=== PATIENT | male | born 1980 | race Asian ===

== ENCOUNTER 2018-08-23 14:17 | Outpatient (CLI) | payer OTHER ==
[2018-08-23 14:47] LABS: BUN - BLOOD UREA NITROGEN 20 mg/dL (6-20); CALCIUM 9.5 mg/dL (8.5-10.3); CARBON DIOXIDE - CO2 29 mmol/L (21-32); CHLORIDE 99 mmol/L (101-111); CHOL/HDL RATIO 4.1 (<5.0); CHOLESTEROL 156 mg/dL; CREATININE 1.2 mg/dL (0.6-1.2); GFR - MDRD 67 (>89); GLUCOSE 92 mg/dL (70-100); HDL CHOLESTEROL 38 mg/dL; LDL CHOLESTEROL,CALCULATED 93 mg/dL; LDL/HDL RATIO 2.4 (<3.6); SODIUM 136 mmol/L (135-145); VLDL CHOLESTEROL 25 mg/dL
== END 2018-08-23 14:18 | disposition home or self-care (01) ==
LOC: LAB 14:17
PROVIDERS: ATTEND Internal Medicine
DX: Z00.00 Encounter for general adult medical examination without abnormal findings (principal)
CPT/HCPCS: 36415; 80048; 80061; 83721

== ENCOUNTER 2022-03-24 10:07 | Outpatient (CLI) | payer BC ==
[2022-03-24 14:42] LABS: BASOPHILS # (AUTO) 0.1 10^3/uL (0.0-0.1); BASOPHILS % (AUTO) 0.6 %; EOSINOPHILS # (AUTO) 0.2 10^3/uL (0.0-0.7); EOSINOPHILS % (AUTO) 2.2 %; HGB - HEMOGLOBIN 14.8 g/dL (14.0-18.0); LYMPHOCYTES # (AUTO) 2.2 10^3/uL (1.5-3.5); LYMPHOCYTES % (AUTO) 27.6 %; MEAN CORPUSCULAR HEMOGLOBIN 27.8 pg (27.0-31.0); MEAN CORPUSCULAR HGB CONC 32.2 g/dL (32.0-36.0); MEAN CORPUSCULAR VOLUME 86.5 fL (80.0-94.0); MEAN PLATELET VOLUME 10.1 fL (7.4-11.4); MONOCYTES # (AUTO) 0.8 10^3/uL (0.0-1.0); MONOCYTES % (AUTO) 9.8 %; NEUTROPHILS # (AUTO) 4.8 10^3/uL (1.5-6.6); NEUTROPHILS % (AUTO) 59.3 %; PLT - PLATELET COUNT 272 10^3/uL (130-450); RED BLOOD COUNT 5.32 10^6/uL (4.70-6.10)
[2022-03-24 15:00] LABS: CHOL/HDL RATIO 6.8 (<5.0); CHOLESTEROL 196 mg/dL; HDL CHOLESTEROL 29 mg/dL; LDL CHOLESTEROL,CALCULATED 130 mg/dL; LDL/HDL RATIO 4.5 (<3.6); TRIGLYCERIDES 183 mg/dL; VLDL CHOLESTEROL 37 mg/dL
[2022-03-24 15:10] LABS: THYROID STIMULATING HORMONE 3.63 uIU/mL (0.34-5.60)
[2022-03-24 20:55] LABS: ESTIMATED AVERAGE GLUCOSE 111 mg/dL (70-100); HEMOGLOBIN A1c% 5.5 % (4.27-6.07)
[2022-03-25 03:08] LABS: HCV AB <0.1 s/co ratio (0.0-0.9)
== END 2022-03-24 10:08 | disposition home or self-care (01) ==
LOC: LAB.S 10:07
PROVIDERS: ATTEND Internal Medicine
DX: K22.70 Barrett's esophagus without dysplasia (principal); K21.9 Gastro-esophageal reflux disease without esophagitis; E66.3 Overweight; Z13.220 Encounter for screening for lipoid disorders; Z11.59 Encounter for screening for other viral diseases
CPT/HCPCS: 36415; 80061; 83036; 83721; 84443; 85025; 86803

== ENCOUNTER 2023-02-23 10:55 | Day surgery (SDC) | payer BC ==
[2023-02-23] MEDS ORDERED: ceFAZolin 2 GM VIAL ONE (11:10)
[2023-02-23] MEDS ORDERED: LACTATED RINGERS 1,000 ML IV ONE ×2 (11:12→14:21)
[2023-02-23] MEDS ORDERED: BUPIVACAINE 0.25% PF 30 ML VIAL ONE ×2 (11:25→11:26)
--- NOTE | 2023-02-23 11:25 | ANESTHESIA ---
Pre-Anesthesia VS, & Labs - Diagnosis ventral hernia - Procedure open ventral hernia repair Height: 6 ft 2.5 in Weight (kg): 105.69 kg Body Mass Index: 29.5 BMI Classification: Overweight - NPO >8 hours Last Fluid Intake: coffee @0600 - Lab Results Lab results reviewed: Yes Home Medications and Allergies Home Medications: Ambulatory Orders Omeprazole 20 mg PO BID 02/20/23 buPROPion HCL [Wellbutrin Xl] 300 mg PO DAILY 02/20/23 Omeprazole 20 mg PO BID 02/20/23 buPROPion HCL [Wellbutrin Xl] 300 mg PO DAILY 02/20/23 Allergies/Adverse Reactions: Allergies Allergy/AdvReac Type Severity Reaction Status Date / Time No Known Drug Allergies Allergy Verified 02/20/23 14:51 Anes History & Medical History - Anesthetic History Anesthesia Complications: reports: No previous complications Family history of Anesthesia Complications: Denies Family history of Malignant Hyperthermia: Denies - Medical History Cardiovascular: reports: Hypertension Pulmonary: reports: None Gastrointestinal: reports: GERD Urinary: reports: None Musculoskeletal: reports: Other Endocrine/Autoimmune: reports: None Skin: reports: Psoriasis Smoking Status: Current some day smoker Psychosocial: reports: Cannabis History of Cancer?: No - Surgical History General: reports: Colonoscopy, EGD Eyes Ears Nose Throat (EENT): reports: Tonsil/Adenoidectomy Exam General: Alert, Oriented x3, Cooperative Dental: WNL Mouth Openin Fingerbreadth Neck Mobility: Normal Mallampati classification: II Thyromental Distance: 4-6 cm Respiratory: Lungs clear, Normal breath sounds, No respiratory distress Cardiovascular: Regular rate Neurological: Normal speech Mental/Cognitive Status: Alert/Oriented X3, Normal for patient Cognitive Status: Within normal limits Plan Anesthesia Type: General Consent for Procedure(s) Verified and Reviewed: Yes Code Status: Attempt Resuscitation ASA classification: 2-Mild systemic disease Is this case an emergency?: No
[2023-02-23] MEDS ORDERED: ePHEDrine 50 MG/ML VIAL IVP PRN (11:58)
[2023-02-23] MEDS ORDERED: NALOXONE 0.4 MG/ML VIAL IVP PRN (11:58)
[2023-02-23] MEDS ORDERED: ONDANSETRON 4 MG/2 ML VIAL IVP PRN ×2 (11:58→14:22)
[2023-02-23] MEDS ORDERED: HYDROmorphone 0.5 MG/0.5 ML SYRINGE IVP PRN ×2 (11:58→14:22)
[2023-02-23] MEDS ORDERED: fentaNYL 100 MCG/2 ML VIAL IVP PRN (11:58)
[2023-02-23] MEDS ORDERED: ATROPINE ABBOJECT 1 MG/10 ML SYRINGE IVP PRN (11:58)
[2023-02-23] MEDS ORDERED: MORPHINE 2 MG/ML CARPUJECT IVP PRN (11:58)
[2023-02-23] MEDS ORDERED: LACTATED RINGERS 1,000 ML IV SCH (12:00)
[2023-02-23] MEDS ORDERED: fentaNYL 100 MCG/2 ML VIAL ONE (12:02)
[2023-02-23] MEDS ORDERED: PROPOFOL 200 MG/20 ML VIAL IVP ONE ×2 (12:02→14:12)
[2023-02-23] MEDS ORDERED: LIDOCAINE-PF 2% 10 ML AMP SUBQ ONE ×2 (12:02→13:57)
[2023-02-23] MEDS ORDERED: MIDAZOLAM 2 MG/2 ML VIAL ONE (12:02)
[2023-02-23] MEDS ORDERED: ROCURONIUM 50 MG/5 ML VIAL ONE (12:03)
--- NOTE | 2023-02-23 12:32 | HISTORY & PHYSICAL EXAMINATION ---
Chief Complaint - Chief Complaint Chief Complaint: abdominal wall hernia History of Present Illness - History Obtained From Records Reviewed: yes History obtained from: pt Exam Limitations: none - History of Present Illness HPI Comment/Other: ventral hernia. getting bigger and more painful History - Past Medical History Cardiovascular: reports: Hypertension Respiratory: reports: None Endocrine/Autoimmune: reports: None GI: reports: GERD : reports: None HEENT: reports: Chronic sinusitis Psych: reports: Depression, Anxiety, Panic attacks, Post traumatic stress disorder Musculoskeletal: reports: Other Derm: reports: Psoriasis MRSA Hx?: No - Past Surgical History General: reports: Colonoscopy, EGD HEENT: reports: Tonsil/Adenoidectomy - POLST Patient has POLST: No Meds/Allgy - Home Medications Home Medications: Ambulatory Orders Medication Instructions Recorded Confirmed Omeprazole 20 mg PO BID 02/20/23 02/20/23 buPROPion HCL [Wellbutrin Xl] 300 mg PO DAILY 02/20/23 02/20/23 - Allergies Allergies/Adverse Reactions: Allergies Allergy/AdvReac Type Severity Reaction Status Date / Time No Known Drug Allergies Allergy Verified 02/20/23 14:51 Review of Systems - Other Findings Other Findings: 10 pt ros as above otherwise unremarkable Exam - Vital Signs Vital Signs: Vital Signs x48h Temp Pulse Resp BP Pulse Ox 02/23/23 11:32 36.2 C L 70 16 148/105 H 96 - Physical Exam General Appearance: positive: No acute distress, Alert Eyes Bilateral: positive: PERRL, EOMI ENT: positive: No signs of dehydration Neck: positive: No JVD, Trachea midline Respiratory: positive: No respiratory distress, Breath sounds nml Cardiovascular: positive: Regular rate & rhythm Abdomen: positive: Non-tender, No distention Neurologic/Psychiatric: positive: Oriented x3 Conclusion/Plan - Problem List (1) Ventral hernia Conclusion/Plan: plan open repair with mesh. parq held and consent obtained - Lab Results Lab results reviewed: Yes
[2023-02-23] MEDS ORDERED: DEXAMETHASONE 4 MG/ML VIAL ONE (12:51)
[2023-02-23] MEDS ORDERED: BUPIVACAINE 0.25% PF 30 ML VIAL SUBQ ONE (13:07)
[2023-02-23] MEDS ORDERED: SUGAMMADEX 200 MG/2 ML VIAL IVP ONE (13:57)
[2023-02-23] MEDS ORDERED: HYDROcod/ACETAM 5/325 MG TABLET PO PRN (14:22)
--- NOTE | 2023-02-23 14:38 | OPERATIVE REPORT ---
Operative Report - General Procedure Date: 02/23/23 Planned Procedure: open ventral hernia repair with mesh Pre-Op Diagnosis: ventral hernia Procedure Performed: open repair incarcerated ventral hernia with mesh Post Op Diagnosis: incarcerated ventral hernia - Procedure Note Primary Surgeon: wilbert donato Anesthesia Technique: General ET tube, Local Pathology: none Estimated Blood Loss (mL): 2 Drain/Tube Type: Other (none) Indications: painful hernia bulge Findings: 1 cm umbilical hernia. 5 x 2 cm ventral hernia. 4 x 4 cm incarcerated fat 2 x 4 in polypropylene mesh preperitoneal - Other Other Information/Narrative: The patient was properly identified brought to the operating room and placed in supine position. General endotracheal anesthesia was induced. Sequential compression devices were placed. He was prepped and draped in a sterile fashion and given preoperative antibiotics. He had a palpable hernia approximately 4 cm bulge 4 cm cephalad of the umbilicus. A vertical incision was made directly over the marked site of the hernia. The incision was extended left lateral of the umbilicus. Dissection proceeded with cutting current down to the hernia sac. The hernia sac containing adipose tissue was mobilized away from the surrounding subcutaneous tissue down to fascia. Umbilical skin was excised away from the fascia. A 1 cm umbilical hernia was present. Ventral hernia measures approximately 5 x 2 cm. There was a 1 cm bridge between the 2 hernias. The hernia sac was carefully released with cutting current cautery. Small bridge between the 2 hernias was released. The preperitoneal space was carefully developed and incarcerated adipose tissue reduced. The peritoneum remained intact. 2 inch wide by 4 inch tall polypropylene mesh was placed preperitoneal and secured with a total of nearly 20 0 Ethibond sutures. Sutures were placed 2 cm back from the fascial edge circumferentially. Mesh lay in good position. Fascia was then closed over the mesh with additional three-point interrupted 0 Ethibond sutures. Subcutaneous tissue was closed in 2 layers with interrupted 2-0 Vicryl suture. Umbilical skin had been tacked back down to fascia with an interrupted 2-0 Vicryl. Buried interrupted subdermal 3-0 Vicryl sutures were then placed. Skin was closed with a running 4-0 Monocryl subcuticular suture. Dressing was applied. He tolerated the procedure well was awakened and brought to recovery in good condition.
[2023-02-23] MEDS ORDERED: PROMETHAZINE INJ 12.5 MG in SODIUM CHLORIDE 0.9% 50 ML IV ONE (15:15)
[2023-02-23] MEDS ORDERED: SCOPOLAMINE PATCH TOP ONE (15:34)
[2023-02-23] MEDS ORDERED: SCOPOLAMINE PATCH TOP SCH (16:00)
--- NOTE | 2023-02-23 16:16 | ANESTHESIA POST OP EVALUATION ---
Anesthesia Post Eval - Post Anesthesia Eval Vitals: Last Vital Signs Temp 36.0 C L 02/23/23 16:07 Pulse 79 02/23/23 16:07 Resp 16 02/23/23 16:07 BP 146/98 H 02/23/23 16:07 Pulse Ox 98 02/23/23 16:07 O2 Flow Rate CV Function Including HR & BP: Stable Pain Control: Satisfactory Nausea & Vomiting: Negative Mental Status: Baseline Respiratory Status: Airway Patent Hydration Status: Satisfactory Anesthesia Complications: None
[2023-02-23 16:30] VITALS: BP 136/98; O2SAT 100
[2023-02-23] MEDS ORDERED: HYDROcod/ACETAM 5/325 MG TABLET ONE (16:40)
== END 2023-02-23 10:56 | disposition home or self-care (01) ==
LOC: SDS 10:55
PROVIDERS: ATTEND Surgery
DX: K43.6 Other and unspecified ventral hernia with obstruction, without gangrene (principal); K42.9 Umbilical hernia without obstruction or gangrene; I10 Essential (primary) hypertension; F17.200 Nicotine dependence, unspecified, uncomplicated
CPT/HCPCS: 49594; A9270; C1781; J1170; J3490; J7040; J7120

== ENCOUNTER 2023-04-12 10:37 | Outpatient (CLI) | payer BC ==
--- NOTE | 2023-04-12 13:56 | XRAY Report ---
PROCEDURE: Chest 2 View X-Ray INDICATIONS: HYPERTENSION,ADMORNAL CHEST RADIOGRAPH TECHNIQUE: 2 views of the chest were acquired. COMPARISON: None. FINDINGS: Surgical changes and devices: None. Lungs and pleura: No pleural effusions or pneumothorax. Lungs are clear. Mediastinum: Mediastinal contours appear normal. Heart size is normal. Bones and chest wall: No suspicious bony lesions. Overlying soft tissues appear unremarkable. IMPRESSION: No acute cardiopulmonary process. Reviewed by: Luisana Kline MD on 04/12/2023 1:17 PM [facility] Approved by: Luisana Kline MD on 04/12/2023 1:17 PM [facility] Station ID: [id number]
[2023-04-12 14:38] LABS: BASOPHILS # (AUTO) 0.1 10^3/uL (0.0-0.1); BASOPHILS % (AUTO) 0.7 %; EOSINOPHILS # (AUTO) 0.3 10^3/uL (0.0-0.7); EOSINOPHILS % (AUTO) 2.6 %; HCT - HEMATOCRIT 48.4 % (42.0-52.0); HGB - HEMOGLOBIN 15.3 g/dL (14.0-18.0); LYMPHOCYTES # (AUTO) 3.1 10^3/uL (1.5-3.5); LYMPHOCYTES % (AUTO) 31.8 %; MEAN CORPUSCULAR HGB CONC 31.6 g/dL (32.0-36.0); MEAN CORPUSCULAR VOLUME 88.5 fL (80.0-94.0); MEAN PLATELET VOLUME 10.4 fL (7.4-11.4); MONOCYTES # (AUTO) 0.9 10^3/uL (0.0-1.0); MONOCYTES % (AUTO) 9.5 %; NEUTROPHILS # (AUTO) 5.4 10^3/uL (1.5-6.6); NEUTROPHILS % (AUTO) 55.1 %; PLT - PLATELET COUNT 276 10^3/uL (130-450); RED BLOOD COUNT 5.47 10^6/uL (4.70-6.10); RED CELL DISTRIBUTION WIDTH 13.9 % (12.0-15.0); WHITE BLOOD COUNT 9.7 x10^3/uL (4.8-10.8)
[2023-04-12 15:17] LABS: ALBUMIN 4.3 g/dL (3.2-5.5); ALBUMIN/GLOBULIN RATIO 1.6 (1.0-2.2); BILIRUBIN,TOTAL 0.5 mg/dL (0.2-1.0); CALCIUM 9.8 mg/dL (8.5-10.3); CREATININE 1.3 mg/dL (0.6-1.3)
== END 2023-04-12 10:38 | disposition home or self-care (01) ==
LOC: DI.S 10:37
PROVIDERS: ATTEND Emergency Medicine
DX: I10 Essential (primary) hypertension (principal)
CPT/HCPCS: 36415; 80053; 85025

== ENCOUNTER 2023-07-07 10:37 | Outpatient (CLI) | payer BC ==
[2023-07-07 14:37] LABS: BASOPHILS # (AUTO) 0.1 10^3/uL (0.0-0.1); BASOPHILS % (AUTO) 0.9 %; EOSINOPHILS # (AUTO) 0.2 10^3/uL (0.0-0.7); EOSINOPHILS % (AUTO) 2.6 %; HCT - HEMATOCRIT 51.7 % (42.0-52.0); HGB - HEMOGLOBIN 16.6 g/dL (14.0-18.0); LYMPHOCYTES # (AUTO) 3.7 10^3/uL (1.5-3.5); LYMPHOCYTES % (AUTO) 40.2 %; MEAN CORPUSCULAR HEMOGLOBIN 28.1 pg (27.0-31.0); MEAN CORPUSCULAR HGB CONC 32.1 g/dL (32.0-36.0); MEAN CORPUSCULAR VOLUME 87.5 fL (80.0-94.0); MEAN PLATELET VOLUME 11.2 fL (7.4-11.4); MONOCYTES # (AUTO) 0.8 10^3/uL (0.0-1.0); MONOCYTES % (AUTO) 8.9 %; NEUTROPHILS # (AUTO) 4.3 10^3/uL (1.5-6.6); NEUTROPHILS % (AUTO) 47.2 %; PLT - PLATELET COUNT 297 10^3/uL (130-450); RED BLOOD COUNT 5.91 10^6/uL (4.70-6.10); RED CELL DISTRIBUTION WIDTH 13.5 % (12.0-15.0); WHITE BLOOD COUNT 9.2 x10^3/uL (4.8-10.8)
[2023-07-07 16:15] LABS: ALBUMIN 4.8 g/dL (3.2-5.5); ALBUMIN/GLOBULIN RATIO 1.3 (1.0-2.2); ALKALINE PHOSPHATASE 74 IU/L (42-121); ALT ALANINE AMINOTRANSFERASE 17 IU/L (10-60); AST ASPARTATE AMINOTRANSFERASE 17 IU/L (10-42); BILIRUBIN,TOTAL 0.7 mg/dL (0.2-1.0); BUN - BLOOD UREA NITROGEN 23 mg/dL (6-20); CALCIUM 10.2 mg/dL (8.5-10.3); CARBON DIOXIDE - CO2 25 mmol/L (21-32); CHLORIDE 103 mmol/L (101-111); CHOL/HDL RATIO 7.4 (<5.0); CHOLESTEROL 193 mg/dL; CREATININE 1.3 mg/dL (0.6-1.3); GFR - MDRD 60 (>89); GLUCOSE 88 mg/dL (74-104); HDL CHOLESTEROL 26 mg/dL; LDL CHOLESTEROL,CALCULATED 130 mg/dL; SODIUM 137 mmol/L (135-145); TOTAL PROTEIN 8.4 g/dL (6.4-8.9); TRIGLYCERIDES 186 mg/dL (48-352); VLDL CHOLESTEROL 37 mg/dL
[2023-07-07 20:36] LABS: ESTIMATED AVERAGE GLUCOSE 103 mg/dL (70-100); HEMOGLOBIN A1c% 5.2 % (4.27-6.07)
== END 2023-07-07 10:38 | disposition home or self-care (01) ==
LOC: LAB.S 10:37
PROVIDERS: ATTEND Physician Assistant Medical
DX: Z13.9 Encounter for screening, unspecified (principal)
CPT/HCPCS: 36415; 80053; 80061; 83036; 83721; 84443; 85025

== ENCOUNTER 2023-08-06 12:30 | Outpatient (CLI) | payer BC ==
--- NOTE | 2023-08-06 13:56 | Ultrasound Report ---
PROCEDURE: Renal (Retroperitoneal) INDICATIONS: RENAL INSUFFICIENCY TECHNIQUE: Real-time scanning was performed of the retroperitoneal organs, with image documentation. COMPARISON: None. FINDINGS: Kidneys: Kidneys are normal in size. Right kidney measures 11.1 cm long; left kidney measures 11.0 cm long. Right renal cortical thickness is 1.1 cm; left renal cortical thickness is 1.0 cm. No yevgeniy d masses, hydronephrosis, or nephrolithiasis. Bladder: Pre-void bladder volume is 382 mL. Post-void residual is 13.6 mL. Pre-void images demonst rate no intraluminal masses or stones. On pre-void images, bilateral ureteral jets are noted with co arianna Doppler interrogation. (Of note, ureteral jets may not be detectable in up to 25% of cases due t o insufficient differences in specific gravity between ureteral and bladder urine). Prostate measure s 2.0 x 3.7 x 3.6 cm Miscellaneous: No free abdominal fluid. IMPRESSION: Unremarkable renal ultrasound. Normal-sized kidneys with no hydronephrosis. Reviewed by: George Griffith MD on 08/06/2023 1:55 PM PDT Approved by: George Griffith MD on 08/06/2023 1:55 PM PDT Station ID: [id number]
== END 2023-08-06 12:31 | disposition home or self-care (01) ==
LOC: DI 12:30
PROVIDERS: ATTEND Physician Assistant Medical
DX: N28.9 Disorder of kidney and ureter, unspecified (principal)

== ENCOUNTER 2024-01-05 07:41 | Outpatient (CLI) | payer BC ==
[2024-01-05 16:42] LABS: CALCIUM 9.6 mg/dL (8.5-10.3); CREATININE 1.4 mg/dL (0.6-1.3); PHOSPHORUS 3.3 mg/dL (2.5-5.0); POTASSIUM 4.5 mmol/L (3.5-4.5); URIC ACID 8.4 mg/dL (4.4-7.6)
[2024-01-05 16:49] LABS: CREATININE,URINE 159.6 mg/dL
== END 2024-01-05 07:42 | disposition home or self-care (01) ==
LOC: LAB.S 07:41
PROVIDERS: ATTEND Nurse Practitioner
DX: N17.9 Acute kidney failure, unspecified (principal); I12.9 Hypertensive chronic kidney disease with stage 1 through stage 4 chronic kidney disease, or unspecified chronic kidney disease; N18.32 Chronic kidney disease, stage 3b
CPT/HCPCS: 36415; 80048; 81599; 82570; 83970; 84100; 84156; 84550

== ENCOUNTER 2024-02-16 08:11 | Outpatient (CLI) | payer BC ==
[2024-02-16 15:55] LABS: ALBUMIN 4.2 g/dL (3.2-5.5); ALBUMIN/GLOBULIN RATIO 1.4 (1.0-2.2); BILIRUBIN,TOTAL 0.7 mg/dL (0.2-1.0); CALCIUM 9.3 mg/dL (8.5-10.3); CREATININE 1.3 mg/dL (0.6-1.3); POTASSIUM 4.2 mmol/L (3.5-4.5); TOTAL PROTEIN 7.2 g/dL (6.4-8.9)
== END 2024-02-16 08:12 | disposition home or self-care (01) ==
LOC: LAB.S 08:11
PROVIDERS: ATTEND Nurse Practitioner
DX: I12.9 Hypertensive chronic kidney disease with stage 1 through stage 4 chronic kidney disease, or unspecified chronic kidney disease (principal); N18.31 Chronic kidney disease, stage 3a
CPT/HCPCS: 36415; 80053